=== PATIENT | male | born 1965 | race Two or more races ===

== ENCOUNTER 2024-11-20 16:01 | Emergency (ER) | payer OTHER ==
[~2024-11-20] VITALS: Ht 182.9 cm; Wt 83.9 kg
[2024-11-20] MEDS ORDERED: LIDOCAINE 1% INJ 50 ML MDV IJ ONE (16:29)
[2024-11-20] MEDS: TDAP [DIPH/PERTUSSIS/TET] 0.5 ML VIAL IM ONE (17:41)
[2024-11-20] MEDS ORDERED: TDAP [DIPH/PERTUSSIS/TET] 0.5 ML VIAL IM ONE (17:46)
[2024-11-20 17:53] VITALS: BP 136/90; TEMP 98; O2SAT 99
== END 2024-11-20 17:55 | disposition home or self-care (01) ==
LOC: ER 17:27
DX: S61.411A Laceration without foreign body of right hand, initial encounter (principal); F17.200 Nicotine dependence, unspecified, uncomplicated; W26.8XXA Contact with other sharp object(s), not elsewhere classified, initial encounter; Y93.89 Activity, other specified; Y92.89 Other specified places as the place of occurrence of the external cause; Y99.8 Other external cause status
CPT/HCPCS: 99283; 12002; 90471; 90715; J3490; A6403